=== PATIENT | male | born 1955 | race Caucasian/White ===

== ENCOUNTER → 2019-07-09 | Outpatient (CLI) | payer MEDICARE, OTHER ==
[~2019-07-09] MED LIST: ASPI325; ATOR10; CLOP75; CYCL10; FENO67; FISH1000; Hydrocodone-Ap1 EA20 PO; LISI20; METF500C; METO25ER; NIAC500ER PO; OXYC10ER; RANI150 PO; ROSI4; SIMV10 PO
== END | disposition home or self-care (01) ==
LOC: PLD 10:18 → LAB SHORT 10:18
DX: L28.1 Prurigo nodularis (principal)
CPT/HCPCS: 88305; 88312

== ENCOUNTER → 2021-07-13 | Outpatient (CLI) | payer MEDICARE, OTHER | END | disposition home or self-care (01) | LOC: LAB SHORT 13:38 | DX: A49.9 Bacterial infection, unspecified (principal) | CPT/HCPCS: 87070; 87205 ==

== ENCOUNTER 2023-05-08 12:41 | Day surgery (SDC) | payer MEDICARE, OTHER ==
[~2023-05-08] VITALS: Ht 182.9 cm; Wt 104.5 kg
[2023-05-08] MEDS ORDERED: CARVEDILOL3.125 MG PO (13:23)
[2023-05-08] MEDS ORDERED: DIAZEPAM10 MG PO (13:25)
[2023-05-08] MEDS ORDERED: FUROSEMIDE20 MG PO (13:25)
[2023-05-08] MEDS ORDERED: METF500 PO (13:25)
[2023-05-08] MEDS ORDERED: SPIRONOLACTONE50 MG PO (13:25)
--- NOTE | 2023-05-08 13:31 | NUR ---
05/08/23 1331 Beba Sierra TETRACAINE TO THE L EYE AT 1322, PLEDGET PLACED IN L EYE AT 1324
[2023-05-08 14:44] VITALS: BP 122/82
== END 2023-05-08 14:55 | disposition home or self-care (01) ==
LOC: ORSCSDS 12:41
PROVIDERS: Ophthalmology
PROC: 08RK3JZ Replacement of Left Lens with Synthetic Substitute, Percutaneous Approach (ICD-10-PCS; principal; 2023-05-08 14:00)
DX: E11.36 Type 2 diabetes mellitus with diabetic cataract (principal); H25.13 Age-related nuclear cataract, bilateral; H21.81 Floppy iris syndrome; F17.210 Nicotine dependence, cigarettes, uncomplicated; K21.9 Gastro-esophageal reflux disease without esophagitis; E78.00 Pure hypercholesterolemia, unspecified; I10 Essential (primary) hypertension; Z79.899 Other long term (current) drug therapy
CPT/HCPCS: 82947; J2250; J3010; J3301; J7040; V2632

== ENCOUNTER 2023-05-22 12:51 | Day surgery (SDC) | payer MEDICARE, OTHER ==
[~2023-05-22] VITALS: Ht 182.9 cm; Wt 106.0 kg
[~2023-05-22 12:51] MED LIST changes: +CARVEDILOL3.125 MG PO; +DIAZEPAM10 MG PO; +FUROSEMIDE20 MG PO; +METF500 PO; +SPIRONOLACTONE50 MG PO
[2023-05-22] MEDS ORDERED: OMEP20ER (13:17)
--- NOTE | 2023-05-22 13:24 | NUR ---
05/22/23 1324 Maria Eugenia Sweeney CALL LIGHT WITHIN REACH. TETRACAINE IN AT 1317 AND PLEDGETT IN AT 1318 IN RIGHT EYE
[2023-05-22 14:28] VITALS: BP 107/67
== END 2023-05-22 14:50 | disposition home or self-care (01) ==
LOC: ORSCSDS 12:51
PROVIDERS: Ophthalmology
PROC: 08RJ3JZ Replacement of Right Lens with Synthetic Substitute, Percutaneous Approach (ICD-10-PCS; principal; 2023-05-22 14:00)
DX: E11.36 Type 2 diabetes mellitus with diabetic cataract (principal); H25.11 Age-related nuclear cataract, right eye; Z96.1 Presence of intraocular lens; I25.10 Atherosclerotic heart disease of native coronary artery without angina pectoris; K21.9 Gastro-esophageal reflux disease without esophagitis; I10 Essential (primary) hypertension; F17.210 Nicotine dependence, cigarettes, uncomplicated; Z79.84 Long term (current) use of oral hypoglycemic drugs; Z79.82 Long term (current) use of aspirin; Z79.899 Other long term (current) drug therapy
CPT/HCPCS: 82947; J2250; J3010; J3301; J7040; V2632

== ENCOUNTER → 2024-07-31 | Outpatient (CLI) | payer OTHER ==
[~2024-07-31] MED LIST changes: +DIAZ10 PO; +FLAGYL500 MG PO; +LACT10SY PO; +NICO21TP TOP; +OMEP20ER; +PANT40 PO; +RIFA550T2 PO; +ZOCOR20 MG PO
== END ==
LOC: LAB SHORT 07:45 → LAB 07:45
DX: R21 Rash and other nonspecific skin eruption (principal)
CPT/HCPCS: 88312

== ENCOUNTER 2024-11-02 19:13 | Inpatient (IN) | payer OTHER ==
[~2024-11-02] VITALS: Ht 182.9 cm; Wt 95.9 kg
[2024-11-02 19:56] LABS: BASOPHILS ABSOLUTE AUTO 0.06 K/mm3 (0.00-0.23); BASOPHILS PERCENT AUTO 1 % (0-2); EOSINOPHILS ABSOLUTE AUTO 0.09 K/mm3 (0.00-0.68); EOSINOPHILS PERCENT AUTO 1 % (0-6); Hematocrit 36.8 % (37.0-53.0); Hemoglobin 12.8 g/dL (13.5-17.5); IMMATURE GRAN ABSOLUTE AUTO 0.04 K/mm3 (0.00-0.10); IMMATURE GRAN PERCENT AUTO 0 % (0-1); LYMPHOCYTES ABSOLUTE AUTO 0.99 K/mm3 (0.84-5.20); LYMPHOCYTES PERCENT AUTO 10 % (21-46); MONOCYTES ABSOLUTE AUTO 0.77 K/mm3 (0.16-1.47); MONOCYTES PERCENT AUTO 8 % (4-13); Mean Corpuscular HGB 32.9 pg (26.0-34.0); Mean Corpuscular HGB Conc 34.8 g/dL (31.5-36.5); Mean Corpuscular Volume 95 fL (80-100); Mean Platelet Volume 10.7 fL (9.1-12.4); NEUTROPHILS ABSOLUTE AUTO 8.36 K/mm3 (1.96-9.15); NEUTROPHILS PERCENT AUTO 81 % (41-73); Platelet Count 88 K/mm3 (150-400); RDW Coefficient Variation 15.9 % (11.7-14.2); RDW Standard Deviation 55.1 fL (35.1-46.3); Red Blood Cell Count 3.89 M/mm3 (4.30-5.90); White Blood Cell Count 10.31 K/mm3 (4.00-11.30)
[2024-11-02 20:09] LABS: Alanine Aminotransfer (ALT/SGP 55 U/L (12-78); Albumin, Blood 2.6 g/dL (3.4-5.0); Albumin/Globulin Ratio 0.5 (0.8-1.8); Alk Phos 154 U/L (50-136); Anion Gap 12 mmol/L (3-11); Aspartate Aminotrans (AST/SGOT 59 U/L (12-37); Bilirubin, Total 4.3 mg/dL (0.1-1.0); Blood Urea Nitrogen 11 mg/dL (8-24); Bun/Creatinine Ratio 12.7 (12.0-20.0); CO2, Blood 20 mmol/L (21-32); Calcium, Blood 9.2 mg/dL (8.5-10.1); Chloride, Blood 115 mmol/L (98-108); Creatinine, Blood 0.86 mg/dL (0.60-1.20); Ethanol (Alcohol), Blood, Med <3 mg/dL; Globulin, Blood 4.8 g/dL (2.2-4.0); Glomerular Filtration Rate 94 (60-); Glucose, Blood 208 mg/dL (70-99); Potassium, Blood 4.4 mmol/L (3.5-5.5); Sodium, Blood 143 mmol/L (136-145); Total Protein, Blood 7.4 g/dL (6.4-8.2)
[2024-11-02 21:50] LABS: International Normalized Ratio 1.39; Prothrombin Time Results 14.5 Sec (9.7-11.5)
[2024-11-02] MEDS ORDERED: Lactulose 200 GM/300 ML Enema 300ML BTL PR ONE (22:05)
[2024-11-02] MEDS ORDERED: Lactulose 20 GM/30 ML UDC PO ONE (22:05)
[2024-11-03 01:08] LABS: Source, Urine Clean Catch
[2024-11-03] MEDS ORDERED: Lactated Ringer's 1,000 ML IV SCH (01:25)
[2024-11-03] MEDS ORDERED: FLU VACC TS2024-25(6MOS UP)/PF 45 MCG/0.5 ML SYRINGE IM ONE (01:25)
[2024-11-03 01:26] LABS: Bilirubin, Urine Neg (Neg); Blood, Urine Neg (Neg); Glucose Qualitative, Urine Neg (Neg); Ketones, Urine Neg (Neg); Leukocyte Esterase, Urine Neg (Neg); Nitrite, Urine Neg (Neg); Protein, Urine Neg (Neg); Specific Gravity, Urine 1.005 (1.003-1.022); Urobilinogen, Urine 1+ (Normal)
[2024-11-03 01:36] LABS: U Amphetamine Screen Not Detected; U Barbituate Screen Not Detected; U Benzodiazapine Screen DETECTED; U Buprenorphine Screen Not Detected; U Cannabinoids Screen Not Detected; U Cocaine Screen Not Detected; U Methadone Screen Not Detected; U Methamphetamine Screen Not Detected; U Opiates Screen Not Detected; U Oxycodone Screen Not Detected; U Phencyclidine Screen Not Detected
[2024-11-03 01:40] LABS: Appearance, Urine Clear (Clear); Color, Urine Yellow (P-Yellow)
[2024-11-03] MEDS ORDERED: Insulin Human Lispro 100 Units/ML 3ML Syringe SC SCH ×2 (06:00→11:30)
[2024-11-03] MEDS ORDERED: Pantoprazole Sodium 40 MG Injection IV SCH (06:00)
[2024-11-03 07:33] LABS: Albumin, Blood 2.4 g/dL (3.4-5.0); Albumin/Globulin Ratio 0.6 (0.8-1.8); Bilirubin, Total 4.9 mg/dL (0.1-1.0); Bun/Creatinine Ratio 19.1 (12.0-20.0); Calcium, Blood 8.4 mg/dL (8.5-10.1); Creatinine, Blood 0.68 mg/dL (0.60-1.20); Globulin, Blood 4.3 g/dL (2.2-4.0); Total Protein, Blood 6.7 g/dL (6.4-8.2)
[2024-11-03 07:37] LABS: BASOPHILS ABSOLUTE AUTO 0.06 K/mm3 (0.00-0.23); BASOPHILS PERCENT AUTO 1 % (0-2); EOSINOPHILS ABSOLUTE AUTO 0.08 K/mm3 (0.00-0.68); EOSINOPHILS PERCENT AUTO 1 % (0-6); Hematocrit 32.4 % (37.0-53.0); Hemoglobin 11.6 g/dL (13.5-17.5); IMMATURE GRAN ABSOLUTE AUTO 0.04 K/mm3 (0.00-0.10); IMMATURE GRAN PERCENT AUTO 0 % (0-1); LYMPHOCYTES ABSOLUTE AUTO 1.52 K/mm3 (0.84-5.20); LYMPHOCYTES PERCENT AUTO 17 % (21-46); MONOCYTES ABSOLUTE AUTO 0.72 K/mm3 (0.16-1.47); MONOCYTES PERCENT AUTO 8 % (4-13); Mean Corpuscular HGB 33.7 pg (26.0-34.0); Mean Corpuscular HGB Conc 35.8 g/dL (31.5-36.5); Mean Corpuscular Volume 94 fL (80-100); Mean Platelet Volume 12.2 fL (9.1-12.4); NEUTROPHILS ABSOLUTE AUTO 6.55 K/mm3 (1.96-9.15); NEUTROPHILS PERCENT AUTO 73 % (41-73); Platelet Count 68 K/mm3 (150-400); RDW Coefficient Variation 15.9 % (11.7-14.2); RDW Standard Deviation 54.7 fL (35.1-46.3); Red Blood Cell Count 3.44 M/mm3 (4.30-5.90); White Blood Cell Count 8.97 K/mm3 (4.00-11.30)
[2024-11-03] MEDS ORDERED: Lactulose 200 GM/300 ML Enema 300ML BTL PR PRN (08:00)
[2024-11-03 08:53] VITALS: BP 136/78
[2024-11-03] MEDS ORDERED: Enoxaparin 40 MG/0.4 ML SYR SC SCH (09:00)
[2024-11-03] MEDS ORDERED: RifAXIMin 550 MG Tablet PO SCH (11:00)
[2024-11-03] MEDS ORDERED: Lactulose 20 GM/30 ML UDC PO SCH (13:00)
[2024-11-03 16:03] VITALS: BP 109/59
--- NOTE | 2024-11-03 16:12 | NUR ---
REPORT TAKEN FROM YOLI RN IN ED. PT ARRIVED AND WAS VERY COMBATIVE AND WOULDNT LET STAFF HELP WITH CARE. PT TOOK OUT HIS PIV AND TELE STICKERS AND WAS TUGGING TRYING TO PULL OUT INDWELLING ALCANTAR CATH. PT KEPT STATING HE WANTED TO TALK WITH HIS AND GO HME. THIS NURSE CALLED HIS AND GOT NO ANWER. MD NOTIFIED AND SHOWED UP AND TALKED WITH ABOUT A PLAN AND IS IN PLACE. SINCE PT WAS APOLOGETIC AND LET THIS NURSE PUT ON TELE AND PLACE A NEW PIV. PT HAS BEEN CALM AND COOPERTIVE SINCE.
--- NOTE | 2024-11-03 18:13 | NUR ---
PT WAS ABLE TO TOLERATE CLD, THIS NURSE FOLLOWED ORDERS AND ADVANCED DIET. PT ALSO RESPONDED VERY WELL FOR BLADDER TRAINING SO I D/C ORTIZ CAT @6739
[2024-11-03 19:24] VITALS: BP 126/74
--- NOTE | 2024-11-03 21:30 | NUR ---
assumed care of pt at 1845 and received report. pt verbalized wanting to shower, get dressedd, and go home. pt prepared for shower but educated on risks of discharge prior to medical stability. pt verbalized understanding and at this time agrees to stay at hospital for the night.
[2024-11-04] MEDS ORDERED: Lidocaine 4% 1 Patch TOP PRN (04:00)
[2024-11-04] MEDS ORDERED: Lidocaine 4% 1 Patch TOP ONE (04:00)
--- NOTE | 2024-11-04 04:04 | NUR ---
DISCUSSED W/ PT, PT , AND DR COLEMAN REGARDING PT PLAN OF CARE. WILL ENCOURAGE PT TO REMAIN IN CARE
[2024-11-04 04:35] LABS: BASOPHILS PERCENT AUTO 1 % (0-2); EOSINOPHILS ABSOLUTE AUTO 0.26 K/mm3 (0.00-0.68); EOSINOPHILS PERCENT AUTO 4 % (0-6); Hematocrit 33.5 % (37.0-53.0); Hemoglobin 11.7 g/dL (13.5-17.5); IMMATURE GRAN ABSOLUTE AUTO 0.02 K/mm3 (0.00-0.10); IMMATURE GRAN PERCENT AUTO 0 % (0-1); LYMPHOCYTES ABSOLUTE AUTO 2.59 K/mm3 (0.84-5.20); LYMPHOCYTES PERCENT AUTO 35 % (21-46); MONOCYTES ABSOLUTE AUTO 0.46 K/mm3 (0.16-1.47); MONOCYTES PERCENT AUTO 6 % (4-13); Mean Corpuscular HGB 33.4 pg (26.0-34.0); Mean Corpuscular HGB Conc 34.9 g/dL (31.5-36.5); Mean Corpuscular Volume 96 fL (80-100); Mean Platelet Volume 10.2 fL (9.1-12.4); NEUTROPHILS ABSOLUTE AUTO 4.04 K/mm3 (1.96-9.15); NEUTROPHILS PERCENT AUTO 54 % (41-73); Platelet Count 81 K/mm3 (150-400); RDW Coefficient Variation 15.8 % (11.7-14.2); RDW Standard Deviation 55.6 fL (35.1-46.3); White Blood Cell Count 7.47 K/mm3 (4.00-11.30)
[2024-11-04 04:51] LABS: Albumin, Blood 2.6 g/dL (3.4-5.0); Albumin/Globulin Ratio 0.6 (0.8-1.8); Bilirubin, Total 6.1 mg/dL (0.1-1.0); Bun/Creatinine Ratio 16.4 (12.0-20.0); Calcium, Blood 8.7 mg/dL (8.5-10.1); Creatinine, Blood 0.79 mg/dL (0.60-1.20); Globulin, Blood 4.5 g/dL (2.2-4.0); Magnesium, Blood 1.4 mg/dL (1.6-2.4); Phosphorus, Blood 1.9 mg/dL (2.5-4.9); Potassium, Blood 3.4 mmol/L (3.5-5.5); Total Protein, Blood 7.1 g/dL (6.4-8.2)
--- NOTE | 2024-11-04 06:27 | NUR ---
SHIFT SUMMARY PT A&OX4 AND ANSWERS QUESTIONS APPROPRIATELY. PT IS RESISTENT TO CARE AND VERBALIZES WANTING TO GO HOME. PT EDUCATED ON REASONS FOR BEING IN HOSPITAL. PT DOES NOT VERBALIZE UNDERSTANDING. SPOKE W/ PHYSICIAN AND PT , PT WILL BE PRESENT IN THE AM TO TALK W/ . PT PULLED OFF ALL LINES INCLUDIING PERIPHERA IVS AND TELEMETRY. PT WAITING OUTSIDE ROOM TO EAVE AND IS SITTING IN A CHAIR. NO ACUTE EVENTS AT THIS TIME. PT LEFT IN A POSITION OF SAFETY WITH FALL PRECAUTIONS IN PLACE.
[2024-11-04 09:03] VITALS: BP 117/75
[2024-11-04] MEDS ORDERED: Kristalose20 GM PO (09:07)
[2024-11-04] MEDS ORDERED: CALCIUM CITRATE PO (09:10)
[2024-11-04] MEDS ORDERED: VITAMIN B121000 MCG PO (09:11)
[2024-11-04] MEDS ORDERED: ONE A DAY VITAMIN PO (09:12)
[2024-11-04] MEDS ORDERED: POTASSIUM GLUCONATE PO (09:12)
--- NOTE | 2024-11-04 09:57 | NUR ---
per night nurse pt wanted to leave ama all night and ripped out piv and tele box. PT THIS MORNING ON MY SHIFT WAS NON COMPLIANT AND DID NOT WANT ANY CARE PROVIDED AND DENIED ALL MEDICATIONS. MD NOTIFIED AND CAME UP TO DO A D/C ON THE PT. PT LEFT WITH HOME.
== END 2024-11-04 09:47 | disposition home health service (06) | DRG 442 ==
LOC: ER 19:13 → SURS 23:11 → MEDS 23:11 → ERHOLD 23:11 → ER 23:11 → MEDS 11-03 08:28
PROVIDERS: Hospitalist; Student in an Organized Health Care Education/Training Program; ADMIT Student in an Organized Health Care Education/Training Program
PROC: 0DH67UZ Insertion of Feeding Device into Stomach, Via Natural or Artificial Opening (ICD-10-PCS; principal; 2024-11-02)
PROC: 0T9B70Z Drainage of Bladder with Drainage Device, Via Natural or Artificial Opening (ICD-10-PCS; 2024-11-03)
DX: K76.82 Hepatic encephalopathy (principal); D68.4 Acquired coagulation factor deficiency; I85.10 Secondary esophageal varices without bleeding; K76.6 Portal hypertension; K56.7 Ileus, unspecified; K56.609 Unspecified intestinal obstruction, unspecified as to partial versus complete obstruction; E11.9 Type 2 diabetes mellitus without complications; E78.5 Hyperlipidemia, unspecified; I10 Essential (primary) hypertension; F17.210 Nicotine dependence, cigarettes, uncomplicated; K74.60 Unspecified cirrhosis of liver; F03.90 Unspecified dementia, unspecified severity, without behavioral disturbance, psychotic disturbance, mood disturbance, and anxiety; R33.9 Retention of urine, unspecified; I25.10 Atherosclerotic heart disease of native coronary artery without angina pectoris; K75.81 Nonalcoholic steatohepatitis (NASH); K80.20 Calculus of gallbladder without cholecystitis without obstruction; Z91.148 Patient's other noncompliance with medication regimen for other reason; Z88.5 Allergy status to narcotic agent; Z88.8 Allergy status to other drugs, medicaments and biological substances; Z91.041 Radiographic dye allergy status; Z79.84 Long term (current) use of oral hypoglycemic drugs; Z79.899 Other long term (current) drug therapy; Z98.49 Cataract extraction status, unspecified eye; Z95.5 Presence of coronary angioplasty implant and graft; Z90.89 Acquired absence of other organs; Z88.1 Allergy status to other antibiotic agents; Z28.21 Immunization not carried out because of patient refusal
CPT/HCPCS: 36415; 51702; 70450; 71045; 74176; 76705; 80053; 80320; 81003; 82140; 82947; 83735; 84100; 85025; 85610; 85730; 94762; 97161; 97530; 99285-25; A9270; J2470; J7120

== ENCOUNTER 2025-04-17 10:07 | Inpatient (IN) | payer OTHER ==
[~2025-04-17] VITALS: Ht 154.9 cm; Wt 97.9 kg
[~2025-04-17 10:07] MED LIST changes: +CALCIUM CITRATE PO; +Kristalose20 GM PO; +ONE A DAY VITAMIN PO; +POTASSIUM GLUCONATE PO; +VITAMIN B121000 MCG PO
[2025-04-17] MEDS ORDERED: RIFA550T2 PO (10:31)
[2025-04-17] MEDS ORDERED: Milk Thistle175 M1 PO (10:31)
[2025-04-17 10:38] LABS: BASOPHILS ABSOLUTE AUTO 0.05 K/mm3 (0.00-0.23); BASOPHILS PERCENT AUTO 1 % (0-2); EOSINOPHILS ABSOLUTE AUTO 0.10 K/mm3 (0.00-0.68); EOSINOPHILS PERCENT AUTO 2 % (0-6); Hematocrit 33.3 % (37.0-53.0); Hemoglobin 12.0 g/dL (13.5-17.5); IMMATURE GRAN ABSOLUTE AUTO 0.01 K/mm3 (0.00-0.10); IMMATURE GRAN PERCENT AUTO 0 % (0-1); LYMPHOCYTES ABSOLUTE AUTO 1.59 K/mm3 (0.84-5.20); LYMPHOCYTES PERCENT AUTO 32 % (21-46); MONOCYTES ABSOLUTE AUTO 0.23 K/mm3 (0.16-1.47); MONOCYTES PERCENT AUTO 5 % (4-13); Mean Corpuscular HGB Conc 36.0 g/dL (31.5-36.5); Mean Corpuscular Volume 92 fL (80-100); NEUTROPHILS ABSOLUTE AUTO 2.98 K/mm3 (1.96-9.15); NEUTROPHILS PERCENT AUTO 60 % (41-73); NRBC ABSOLUTE 0.00 K/mm3 (0.00-0.02); NRBC Auto 0.0 /100 WBC (0.0-0.2); Platelet Count 74 K/mm3 (150-400); RDW Coefficient Variation 14.6 % (11.7-14.2); RDW Standard Deviation 49.2 fL (35.1-46.3)
[2025-04-17 10:55] LABS: Alanine Aminotransfer (ALT/SGP 59.0 U/L (12-78); Albumin, Blood 2.6 g/dL (3.4-5.0); Albumin/Globulin Ratio 0.6 (0.8-1.8); Anion Gap 10.0 mmol/L (3-11); Aspartate Aminotrans (AST/SGOT 70.0 U/L (12-37); Bilirubin, Total 2.7 mg/dL (0.1-1.0); Blood Urea Nitrogen 24.0 mg/dL (8-24); CO2, Blood 24.0 mmol/L (21-32); Calcium, Blood 8.6 mg/dL (8.5-10.1); Chloride, Blood 99.0 mmol/L (98-108); Creatinine, Blood 1.12 mg/dL (0.60-1.20); Globulin, Blood 4.4 g/dL (2.2-4.0); Glucose, Blood 103.0 mg/dL (70-99); Potassium, Blood 5.3 mmol/L (3.5-5.5); Sodium, Blood 128.0 mmol/L (136-145); Total Protein, Blood 7.0 g/dL (6.4-8.2)
[2025-04-17 11:23] LABS: Prothrombin Time Results 14.9 Sec (9.7-11.5)
[2025-04-17] MEDS ORDERED: METR500 PO (11:57)
[2025-04-17 15:54] LABS: Anion Gap 11.0 mmol/L (3-11); Blood Urea Nitrogen 24.0 mg/dL (8-24); CO2, Blood 22.0 mmol/L (21-32); Calcium, Blood 8.6 mg/dL (8.5-10.1); Chloride, Blood 99.0 mmol/L (98-108); Creatinine, Blood 1.0 mg/dL (0.60-1.20); Glucose, Blood 121.0 mg/dL (70-99); Potassium, Blood 4.9 mmol/L (3.5-5.5); Sodium, Blood 127.0 mmol/L (136-145)
[2025-04-17] MEDS ORDERED: Insulin Human Lispro 100 Units/ML 3ML Syringe SC SCH (16:30)
[2025-04-17] MEDS ORDERED: Lactulose 200 GM/300 ML Enema 300ML BTL PR SCH (18:00)
--- NOTE | 2025-04-17 18:35 | NUR ---
ADMIT NOTE: PT ARRIVED ON UNIT AT APPOX 1600. HE RESPONDS TO VERBAL STIMULI BUT UNABLE TO ANSWER QUESTIONS. HE IS ON RA WITH SPO2>90. HE HAS A ALCANTAR DRAINING TO GRAVITY AND A RECTAL TUBE PLACED FOR LACTULOSE ENEMAS. PT IS UNABLE TO TAKE PO MEDS DUE TO DROWSINESS. HE IS IN NSR WITH RATES IN THE 50S. CARE CONTINUES
[2025-04-17 19:25] VITALS: BP 122/72
[2025-04-17 23:39] VITALS: BP 108/68
[2025-04-18 04:26] VITALS: BP 112/64
[2025-04-18 05:29] LABS: BASOPHILS ABSOLUTE AUTO 0.09 K/mm3 (0.00-0.23); BASOPHILS PERCENT AUTO 2 % (0-2); EOSINOPHILS ABSOLUTE AUTO 0.13 K/mm3 (0.00-0.68); EOSINOPHILS PERCENT AUTO 3 % (0-6); Hematocrit 35.7 % (37.0-53.0); Hemoglobin 12.8 g/dL (13.5-17.5); IMMATURE GRAN ABSOLUTE AUTO 0.00 K/mm3 (0.00-0.10); IMMATURE GRAN PERCENT AUTO 0 % (0-1); LYMPHOCYTES ABSOLUTE AUTO 1.42 K/mm3 (0.84-5.20); LYMPHOCYTES PERCENT AUTO 29 % (21-46); MONOCYTES ABSOLUTE AUTO 0.33 K/mm3 (0.16-1.47); MONOCYTES PERCENT AUTO 7 % (4-13); Mean Corpuscular HGB Conc 35.9 g/dL (31.5-36.5); Mean Corpuscular Volume 93 fL (80-100); NEUTROPHILS ABSOLUTE AUTO 2.87 K/mm3 (1.96-9.15); NEUTROPHILS PERCENT AUTO 59 % (41-73); NRBC ABSOLUTE 0.00 K/mm3 (0.00-0.02); NRBC Auto 0.0 /100 WBC (0.0-0.2); Platelet Count 63 K/mm3 (150-400); RDW Coefficient Variation 14.8 % (11.7-14.2); RDW Standard Deviation 50.7 fL (35.1-46.3)
[2025-04-18 05:55] LABS: Alanine Aminotransfer (ALT/SGP 66.0 U/L (12-78); Albumin, Blood 2.7 g/dL (3.4-5.0); Albumin/Globulin Ratio 0.6 (0.8-1.8); Anion Gap 10.0 mmol/L (3-11); Aspartate Aminotrans (AST/SGOT 81.0 U/L (12-37); Bilirubin, Total 3.6 mg/dL (0.1-1.0); Blood Urea Nitrogen 21.0 mg/dL (8-24); CO2, Blood 23.0 mmol/L (21-32); Calcium, Blood 8.7 mg/dL (8.5-10.1); Chloride, Blood 106.0 mmol/L (98-108); Creatinine, Blood 0.97 mg/dL (0.60-1.20); Globulin, Blood 4.6 g/dL (2.2-4.0); Glucose, Blood 75.0 mg/dL (70-99); Potassium, Blood 3.8 mmol/L (3.5-5.5); Sodium, Blood 135.0 mmol/L (136-145); Total Protein, Blood 7.3 g/dL (6.4-8.2)
--- NOTE | 2025-04-18 06:29 | NUR ---
SHIFT SUMMARY PT ALERT, OREINTED TO SELF AND PLACE. HE IS CONFUSED BUT MENTATION IMPROVING FROM T/O SHIFT. HR IN THE 40'S-50'S, SINUS AAMIR. HE DENIES ANY CP/PRESSURE, NUMB/TINGLING, SBP STABLE. 02 >92% ON RA. PT HAS ALCANTAR IN PLACE, DRAINING TO GRAVITY. STAT LOCK CHANGED THIS AM. PT HAS RECTAL TUBE IN PLACE, RECTAL TUBE CHANGED THIS AM. PT HAVING LIQUID BROWN STOOLS, RECIEVING LACTULOSE ENEMA Q6. PT ASKING "WHEN CAN I GO HOME." EDUCATION PROVIDED TO PT ON PLAN OF CARE. PT SITTING UP IN BED AT THIS TIME. WILL MONITOR PT AND REPORT TO ONCOMING RN.
[2025-04-18 07:27] VITALS: BP 139/72
[2025-04-18] MEDS ORDERED: Enoxaparin 40 MG/0.4 ML SYR SC SCH (09:00)
[2025-04-18 12:05] LABS: Stool Occult Blood Guaiac 1 Neg (Neg)
== END 2025-04-18 15:00 | disposition home or self-care (01) | DRG 442 ==
LOC: ER 10:07 → ERHOLD 14:27 → PCU 16:53
PROVIDERS: Emergency Medicine; ADMIT Student in an Organized Health Care Education/Training Program
DX: K76.82 Hepatic encephalopathy (principal); E72.20 Disorder of urea cycle metabolism, unspecified; K76.6 Portal hypertension; K74.69 Other cirrhosis of liver; K75.81 Nonalcoholic steatohepatitis (NASH); D69.6 Thrombocytopenia, unspecified; I25.10 Atherosclerotic heart disease of native coronary artery without angina pectoris; I10 Essential (primary) hypertension; Z66 Do not resuscitate; E11.42 Type 2 diabetes mellitus with diabetic polyneuropathy; D64.9 Anemia, unspecified; F17.200 Nicotine dependence, unspecified, uncomplicated; T47.3X6A Underdosing of saline and osmotic laxatives, initial encounter; R33.9 Retention of urine, unspecified; Z91.138 Patient's unintentional underdosing of medication regimen for other reason; Z95.5 Presence of coronary angioplasty implant and graft; Z86.718 Personal history of other venous thrombosis and embolism; Z91.148 Patient's other noncompliance with medication regimen for other reason; Z79.84 Long term (current) use of oral hypoglycemic drugs; Z88.8 Allergy status to other drugs, medicaments and biological substances; Z88.5 Allergy status to narcotic agent; Z91.041 Radiographic dye allergy status; I25.2 Old myocardial infarction
CPT/HCPCS: 36415; 51702; 51798; 80048; 80053; 82140; 82272; 82947; 83930; 83935; 84300; 85025; 85610; 93005; 93010; 99285-25; A9270; J1650

== ENCOUNTER 2025-04-24 11:22 | Observation (INO) | payer OTHER ==
[~2025-04-24] VITALS: Ht 182.9 cm; Wt 97.3 kg
[~2025-04-24 11:22] MED LIST changes: +METR500 PO; +Milk Thistle175 M1 PO
[2025-04-24] MEDS ORDERED: Naloxone HCl 1MG / ML 2ML SYR IV ONE (11:35)
[2025-04-24 11:40] LABS: BASOPHILS ABSOLUTE AUTO 0.04 K/mm3 (0.00-0.23); BASOPHILS PERCENT AUTO 1 % (0-2); EOSINOPHILS ABSOLUTE AUTO 0.08 K/mm3 (0.00-0.68); EOSINOPHILS PERCENT AUTO 2 % (0-6); Hematocrit 30.5 % (37.0-53.0); Hemoglobin 11.0 g/dL (13.5-17.5); IMMATURE GRAN ABSOLUTE AUTO 0.01 K/mm3 (0.00-0.10); IMMATURE GRAN PERCENT AUTO 0 % (0-1); LYMPHOCYTES ABSOLUTE AUTO 1.60 K/mm3 (0.84-5.20); LYMPHOCYTES PERCENT AUTO 31 % (21-46); MONOCYTES ABSOLUTE AUTO 0.26 K/mm3 (0.16-1.47); MONOCYTES PERCENT AUTO 5 % (4-13); Mean Corpuscular HGB Conc 36.1 g/dL (31.5-36.5); Mean Corpuscular Volume 91 fL (80-100); NEUTROPHILS ABSOLUTE AUTO 3.25 K/mm3 (1.96-9.15); NEUTROPHILS PERCENT AUTO 62 % (41-73); NRBC ABSOLUTE 0.00 K/mm3 (0.00-0.02); NRBC Auto 0.0 /100 WBC (0.0-0.2); Platelet Count 59 K/mm3 (150-400); RDW Coefficient Variation 15.1 % (11.7-14.2); RDW Standard Deviation 50.3 fL (35.1-46.3)
[2025-04-24 12:16] LABS: Alanine Aminotransfer (ALT/SGP 73.0 U/L (12-78); Albumin, Blood 2.5 g/dL (3.4-5.0); Albumin/Globulin Ratio 0.6 (0.8-1.8); Anion Gap 13.0 mmol/L (3-11); Aspartate Aminotrans (AST/SGOT 87.0 U/L (12-37); Bilirubin, Total 1.9 mg/dL (0.1-1.0); Blood Urea Nitrogen 19.0 mg/dL (8-24); CO2, Blood 20.0 mmol/L (21-32); Calcium, Blood 8.3 mg/dL (8.5-10.1); Chloride, Blood 99.0 mmol/L (98-108); Creatinine, Blood 1.31 mg/dL (0.60-1.20); Globulin, Blood 4.1 g/dL (2.2-4.0); Glucose, Blood 121.0 mg/dL (70-99); Potassium, Blood 5.7 mmol/L (3.5-5.5); Sodium, Blood 126.0 mmol/L (136-145); Total Protein, Blood 6.6 g/dL (6.4-8.2)
[2025-04-24] MEDS ORDERED: Lactulose 200 GM/300 ML Enema 300ML BTL PR ONE (12:20)
[2025-04-24] MEDS ORDERED: NS 1,000 ML IV SCH (12:25)
[2025-04-24 12:26] LABS: U Amphetamine Screen Not Detected; U Barbituate Screen Not Detected; U Benzodiazapine Screen DETECTED; U Buprenorphine Screen Not Detected; U Cannabinoids Screen Not Detected; U Cocaine Screen Not Detected; U Methadone Screen Not Detected; U Methamphetamine Screen Not Detected; U Opiates Screen Not Detected; U Oxycodone Screen Not Detected; U Phencyclidine Screen Not Detected
[2025-04-24 15:14] VITALS: BP 113/76
[2025-04-24 15:28] LABS: Source, Urine Foley catheter
[2025-04-24 15:33] LABS: Bilirubin, Urine Neg (Neg); Color, Urine Yellow (P-Yellow); Glucose Qualitative, Urine Neg (Neg); Ketones, Urine Neg (Neg); Leukocyte Esterase, Urine 1+ (Neg); Protein, Urine Neg (Neg); Specific Gravity, Urine 1.010 (1.003-1.022); Urobilinogen, Urine NORM (Normal)
--- NOTE | 2025-04-24 16:13 | NUR ---
ARRIVAL NOTE: PT ARRIVES TO PCU OBTUNDED RESPONDING TO VERBAL STIMULI BUT NOT ANSWERING QUESTIONS. HE IS ON TELE IN NSR AND RA WITH SPO2 >95%. CONTINUOUS SPO2 MONITORING. ALCANTAR WAS PLACED PER ORDERS WITH >1300 DRAINED (SEE I&OS). RECTAL TUBE PLACED FOR LACTULOSE ENEMAS. CARE CONTINUES
[2025-04-24] MEDS ORDERED: CefTRIAXone Sodium 1,000 MG in NS 100 ML IV SCH (17:00)
[2025-04-24] MEDS ORDERED: NS 250 ML IV PRN (17:10)
[2025-04-24] MEDS ORDERED: Lactulose 200 GM/300 ML Enema 300ML BTL PR SCH (18:00)
[2025-04-24 19:40] VITALS: BP 109/64
--- NOTE | 2025-04-24 21:31 | NUR ---
NURSE NOTE PT HAS CALLED THREE TIMES [facility] AND IS WANTING HOME MEDICATIONS ORDERED. THIS INFORMATION WAS PASSED ALONG TO RESIDENT MD, WHO SAID HE WOULD LOOK INTO THIS, PT WOULD ALSO LIKE SOMEONE TO CALL PT HEAD CHOPPER THE PHONE NUMBER IS [phone]. THIS INFORMATION WILL BE PASSED ON TO THE RESIDENT AND TO THE DAY SHIFT TEAM.
[2025-04-25 00:14] VITALS: BP 114/66
[2025-04-25 03:54] LABS: BASOPHILS ABSOLUTE AUTO 0.07 K/mm3 (0.00-0.23); BASOPHILS PERCENT AUTO 1 % (0-2); EOSINOPHILS ABSOLUTE AUTO 0.15 K/mm3 (0.00-0.68); EOSINOPHILS PERCENT AUTO 2 % (0-6); Hematocrit 32.0 % (37.0-53.0); Hemoglobin 11.5 g/dL (13.5-17.5); IMMATURE GRAN ABSOLUTE AUTO 0.01 K/mm3 (0.00-0.10); IMMATURE GRAN PERCENT AUTO 0 % (0-1); LYMPHOCYTES ABSOLUTE AUTO 1.48 K/mm3 (0.84-5.20); LYMPHOCYTES PERCENT AUTO 20 % (21-46); MONOCYTES ABSOLUTE AUTO 0.37 K/mm3 (0.16-1.47); MONOCYTES PERCENT AUTO 5 % (4-13); Mean Corpuscular HGB Conc 35.9 g/dL (31.5-36.5); Mean Corpuscular Volume 93 fL (80-100); NEUTROPHILS ABSOLUTE AUTO 5.46 K/mm3 (1.96-9.15); NEUTROPHILS PERCENT AUTO 73 % (41-73); NRBC ABSOLUTE 0.00 K/mm3 (0.00-0.02); NRBC Auto 0.0 /100 WBC (0.0-0.2); Platelet Count 56 K/mm3 (150-400); RDW Coefficient Variation 15.3 % (11.7-14.2); RDW Standard Deviation 51.6 fL (35.1-46.3)
[2025-04-25 04:10] LABS: Alanine Aminotransfer (ALT/SGP 74.0 U/L (12-78); Albumin, Blood 2.4 g/dL (3.4-5.0); Albumin/Globulin Ratio 0.6 (0.8-1.8); Anion Gap 12.0 mmol/L (3-11); Aspartate Aminotrans (AST/SGOT 82.0 U/L (12-37); Bilirubin, Total 2.8 mg/dL (0.1-1.0); Blood Urea Nitrogen 14.0 mg/dL (8-24); CO2, Blood 20.0 mmol/L (21-32); Calcium, Blood 8.2 mg/dL (8.5-10.1); Chloride, Blood 108.0 mmol/L (98-108); Creatinine, Blood 1.01 mg/dL (0.60-1.20); Globulin, Blood 4.0 g/dL (2.2-4.0); Glucose, Blood 98.0 mg/dL (70-99); Potassium, Blood 3.9 mmol/L (3.5-5.5); Total Protein, Blood 6.4 g/dL (6.4-8.2)
[2025-04-25 04:20] LABS: Sodium, Blood 136.0 mmol/L (136-145)
[2025-04-25 04:27] VITALS: BP 112/71
--- NOTE | 2025-04-25 05:55 | NUR ---
NOC SHIFT SUMMARY PT MENTATION HAS MUCH IMPROVED SINCE START OF SHIFT, HE IS ORIENTATED TO SELF, PLACE, AND PERSON. HE WAS AVLE TO TELL ME , WHERE HE LIVES WHAT KIND OF ANIMALS HE HAS AT HOME. HE WAS TALKING ABOUT HIS . AROUND 0000 PATIENT WAS ABLE TO FOLLOW SOME COMMANDS AND HELP WITH REPOSTIONING, HE LIFTED BOTH LEGS AND ARMS WHEN INSTRUCTED. SINCE HE HAS AWOKEN MORE HE HAS BEEN DEMANDING TO GO HOME AND IS UPSET HE IS AT THE HOSPITAL AGAIN (HE WAS RECENTLY DISCHARGED). RECTAL TUBE REMAINS IN PLACE WITH 2000MLS OUT. ALCANTAR IN PLACE DRAINING TO GRAVITY. TELE IN PLACE SHOWING SINUS AT A RATE OF 75. DENIES CHEST PAIN OR PRESSURE. ON RA SATTING >90% T/O THE NIGHT. BED ALARM ON, CALL LIGHT IN REACH. WILL REPORT TO ON COMING RN.
[2025-04-25 07:41] VITALS: BP 128/63
[2025-04-25] MEDS ORDERED: Pantoprazole Sodium 40 MG Injection IV SCH (09:00)
[2025-04-25 11:21] VITALS: BP 105/59
--- NOTE | 2025-04-25 14:15 | NUR ---
DISCHARGE NOTE: PT AND EDCUATED ON NEED TO TAKE MEDICATIONS PRESCRIBED AND TO FOLLOW UP WITH PCP REGARDING CONTINUED CARE. PIV, ALCANTAR, AND RECTAL TUBE REMOVED BEFORE DISCHARGE. NO QUESTIONS OR CONCERNS AT TIME OF DISCHARGE.
== END 2025-04-25 14:14 | disposition home or self-care (01) ==
LOC: ER 11:22 → ERHOLD 12:47 → PCU 14:31
PROVIDERS: Emergency Medicine; ADMIT Family Medicine
DX: K76.82 Hepatic encephalopathy (principal); R41.82 Altered mental status, unspecified; K74.60 Unspecified cirrhosis of liver; K75.81 Nonalcoholic steatohepatitis (NASH); R33.9 Retention of urine, unspecified; D69.6 Thrombocytopenia, unspecified; D64.9 Anemia, unspecified; N17.9 Acute kidney failure, unspecified; I10 Essential (primary) hypertension; E11.9 Type 2 diabetes mellitus without complications; E87.1 Hypo-osmolality and hyponatremia; E87.6 Hypokalemia; E78.5 Hyperlipidemia, unspecified; Z95.5 Presence of coronary angioplasty implant and graft; Z87.891 Personal history of nicotine dependence; Z79.84 Long term (current) use of oral hypoglycemic drugs; Z79.899 Other long term (current) drug therapy; Z91.041 Radiographic dye allergy status; Z88.5 Allergy status to narcotic agent; Z88.8 Allergy status to other drugs, medicaments and biological substances; Z98.890 Other specified postprocedural states
CPT/HCPCS: 36415; 51701; 70450; 76705; 80053; 81001; 82140; 82947; 84132; 84484; 85025; 87086; 93005; 93010; 93971; 96365; 96374; 96375; 99285-25; A9270; G0378; J0696; J2310; J2312; J2470; J7030; J7050

== ENCOUNTER 2025-06-13 23:07 | Emergency (ER) | payer OTHER ==
[~2025-06-13] VITALS: Ht 182.9 cm; Wt 89.4 kg
[2025-06-14 01:06] LABS: BASOPHILS ABSOLUTE AUTO 0.07 K/mm3 (0.00-0.23); BASOPHILS PERCENT AUTO 1 % (0-2); EOSINOPHILS ABSOLUTE AUTO 0.14 K/mm3 (0.00-0.68); EOSINOPHILS PERCENT AUTO 2 % (0-6); Hematocrit 33.4 % (37.0-53.0); Hemoglobin 11.9 g/dL (13.5-17.5); IMMATURE GRAN ABSOLUTE AUTO 0.03 K/mm3 (0.00-0.10); IMMATURE GRAN PERCENT AUTO 0 % (0-1); LYMPHOCYTES ABSOLUTE AUTO 1.93 K/mm3 (0.84-5.20); LYMPHOCYTES PERCENT AUTO 28 % (21-46); MONOCYTES ABSOLUTE AUTO 0.52 K/mm3 (0.16-1.47); MONOCYTES PERCENT AUTO 8 % (4-13); Mean Corpuscular HGB Conc 35.6 g/dL (31.5-36.5); Mean Corpuscular Volume 94 fL (80-100); NEUTROPHILS ABSOLUTE AUTO 4.16 K/mm3 (1.96-9.15); NEUTROPHILS PERCENT AUTO 61 % (41-73); NRBC ABSOLUTE 0.00 K/mm3 (0.00-0.02); NRBC Auto 0.0 /100 WBC (0.0-0.2); Platelet Count 97 K/mm3 (150-400); RDW Coefficient Variation 16.3 % (11.7-14.2); RDW Standard Deviation 57.2 fL (35.1-46.3)
[2025-06-14 01:14] LABS: Prothrombin Time Results 16.6 Sec (9.7-11.5)
[2025-06-14 01:18] LABS: Alanine Aminotransfer (ALT/SGP 54.0 U/L (12-78); Albumin, Blood 2.6 g/dL (3.4-5.0); Albumin/Globulin Ratio 0.6 (0.8-1.8); Anion Gap 10.0 mmol/L (3-11); Aspartate Aminotrans (AST/SGOT 70.0 U/L (12-37); Bilirubin, Total 3.5 mg/dL (0.1-1.0); Blood Urea Nitrogen 21.0 mg/dL (8-24); CO2, Blood 22.0 mmol/L (21-32); Calcium, Blood 8.7 mg/dL (8.5-10.1); Chloride, Blood 105.0 mmol/L (98-108); Creatinine, Blood 1.3 mg/dL (0.60-1.20); Globulin, Blood 4.7 g/dL (2.2-4.0); Glucose, Blood 116.0 mg/dL (70-99); Potassium, Blood 4.9 mmol/L (3.5-5.5); Sodium, Blood 132.0 mmol/L (136-145); Total Protein, Blood 7.3 g/dL (6.4-8.2)
[2025-06-14 03:42] VITALS: BP 117/67
== END 2025-06-14 04:44 | disposition home or self-care (01) ==
LOC: ER 23:07
PROVIDERS: Student in an Organized Health Care Education/Training Program
DX: S01.111A Laceration without foreign body of right eyelid and periocular area, initial encounter (principal); R53.1 Weakness; E11.9 Type 2 diabetes mellitus without complications; E78.5 Hyperlipidemia, unspecified; I25.2 Old myocardial infarction; I10 Essential (primary) hypertension; F17.210 Nicotine dependence, cigarettes, uncomplicated; W01.0XXA Fall on same level from slipping, tripping and stumbling without subsequent striking against object, initial encounter; Z79.84 Long term (current) use of oral hypoglycemic drugs; Z79.899 Other long term (current) drug therapy; Z88.5 Allergy status to narcotic agent; Z88.8 Allergy status to other drugs, medicaments and biological substances
CPT/HCPCS: 12013; 70450; 80053; 84484; 85025; 85610; 85730; 93005; 93010; 99284-25

== ENCOUNTER 2025-06-15 16:59 | Emergency (ER) | payer OTHER ==
[~2025-06-15] VITALS: Ht 182.9 cm; Wt 88.9 kg
[2025-06-15] MEDS ORDERED: NS 1,000 ML IV SCH ×2 (17:15→21:15)
[2025-06-15 21:39] LABS: BASOPHILS ABSOLUTE AUTO 0.05 K/mm3 (0.00-0.23); BASOPHILS PERCENT AUTO 1 % (0-2); EOSINOPHILS ABSOLUTE AUTO 0.13 K/mm3 (0.00-0.68); EOSINOPHILS PERCENT AUTO 3 % (0-6); Hematocrit 29.4 % (37.0-53.0); Hemoglobin 10.3 g/dL (13.5-17.5); IMMATURE GRAN ABSOLUTE AUTO 0.02 K/mm3 (0.00-0.10); IMMATURE GRAN PERCENT AUTO 0 % (0-1); LYMPHOCYTES ABSOLUTE AUTO 1.62 K/mm3 (0.84-5.20); LYMPHOCYTES PERCENT AUTO 32 % (21-46); MONOCYTES ABSOLUTE AUTO 0.34 K/mm3 (0.16-1.47); MONOCYTES PERCENT AUTO 7 % (4-13); Mean Corpuscular HGB Conc 35.0 g/dL (31.5-36.5); Mean Corpuscular Volume 97 fL (80-100); NEUTROPHILS ABSOLUTE AUTO 2.97 K/mm3 (1.96-9.15); NEUTROPHILS PERCENT AUTO 58 % (41-73); NRBC ABSOLUTE 0.00 K/mm3 (0.00-0.02); NRBC Auto 0.0 /100 WBC (0.0-0.2); Platelet Count 68 K/mm3 (150-400); RDW Coefficient Variation 16.5 % (11.7-14.2); RDW Standard Deviation 58.7 fL (35.1-46.3)
[2025-06-15 21:58] LABS: Alanine Aminotransfer (ALT/SGP 50.0 U/L (12-78); Albumin, Blood 2.2 g/dL (3.4-5.0); Albumin/Globulin Ratio 0.5 (0.8-1.8); Anion Gap 12.0 mmol/L (3-11); Aspartate Aminotrans (AST/SGOT 60.0 U/L (12-37); Bilirubin, Total 3.7 mg/dL (0.1-1.0); Blood Urea Nitrogen 27.0 mg/dL (8-24); CO2, Blood 18.0 mmol/L (21-32); Calcium, Blood 8.1 mg/dL (8.5-10.1); Chloride, Blood 102.0 mmol/L (98-108); Creatinine, Blood 1.09 mg/dL (0.60-1.20); Globulin, Blood 4.1 g/dL (2.2-4.0); Glucose, Blood 224.0 mg/dL (70-99); Potassium, Blood 5.0 mmol/L (3.5-5.5); Sodium, Blood 127.0 mmol/L (136-145); Total Protein, Blood 6.3 g/dL (6.4-8.2)
[2025-06-15 22:17] VITALS: BP 107/62
== END 2025-06-15 23:00 | disposition home or self-care (01) ==
LOC: ER 16:59
PROVIDERS: Student in an Organized Health Care Education/Training Program
DX: S09.90XA Unspecified injury of head, initial encounter (principal); K76.0 Fatty (change of) liver, not elsewhere classified; E78.5 Hyperlipidemia, unspecified; E11.9 Type 2 diabetes mellitus without complications; F17.210 Nicotine dependence, cigarettes, uncomplicated; W01.0XXA Fall on same level from slipping, tripping and stumbling without subsequent striking against object, initial encounter; Z79.899 Other long term (current) drug therapy; Z88.5 Allergy status to narcotic agent; Z88.8 Allergy status to other drugs, medicaments and biological substances
CPT/HCPCS: 70450; 80053; 82140; 85025; 93005; 93010; J7030

== ENCOUNTER 2025-06-23 05:15 | Emergency (ER) | payer OTHER ==
[~2025-06-23] VITALS: Ht 182.9 cm; Wt 90.7 kg
[2025-06-23 05:41] LABS: BASOPHILS ABSOLUTE AUTO 0.09 K/mm3 (0.00-0.23); BASOPHILS PERCENT AUTO 1 % (0-2); EOSINOPHILS ABSOLUTE AUTO 0.22 K/mm3 (0.00-0.68); EOSINOPHILS PERCENT AUTO 3 % (0-6); Hematocrit 34.7 % (37.0-53.0); Hemoglobin 12.3 g/dL (13.5-17.5); IMMATURE GRAN ABSOLUTE AUTO 0.03 K/mm3 (0.00-0.10); IMMATURE GRAN PERCENT AUTO 0 % (0-1); LYMPHOCYTES ABSOLUTE AUTO 2.14 K/mm3 (0.84-5.20); LYMPHOCYTES PERCENT AUTO 27 % (21-46); MONOCYTES ABSOLUTE AUTO 0.68 K/mm3 (0.16-1.47); MONOCYTES PERCENT AUTO 9 % (4-13); Mean Corpuscular HGB Conc 35.4 g/dL (31.5-36.5); Mean Corpuscular Volume 95 fL (80-100); NEUTROPHILS ABSOLUTE AUTO 4.72 K/mm3 (1.96-9.15); NEUTROPHILS PERCENT AUTO 60 % (41-73); NRBC ABSOLUTE 0.00 K/mm3 (0.00-0.02); NRBC Auto 0.0 /100 WBC (0.0-0.2); Platelet Count 119 K/mm3 (150-400); RDW Coefficient Variation 16.4 % (11.7-14.2); RDW Standard Deviation 57.5 fL (35.1-46.3)
[2025-06-23 06:06] LABS: Alanine Aminotransfer (ALT/SGP 64 U/L (12-78); Albumin, Blood 2.5 g/dL (3.4-5.0); Albumin/Globulin Ratio 0.5 (0.8-1.8); Anion Gap 16 mmol/L (3-11); Aspartate Aminotrans (AST/SGOT 72 U/L (12-37); Bilirubin, Total 3.3 mg/dL (0.1-1.0); Blood Urea Nitrogen 31 mg/dL (8-24); CO2, Blood 16 mmol/L (21-32); Calcium, Blood 8.9 mg/dL (8.5-10.1); Chloride, Blood 100 mmol/L (98-108); Creatinine, Blood 1.17 mg/dL (0.60-1.20); Ethanol (Alcohol), Blood, Med <3 mg/dL; Globulin, Blood 5.2 g/dL (2.2-4.0); Glucose, Blood 105 mg/dL (70-99); Potassium, Blood 5.3 mmol/L (3.5-5.5); Sodium, Blood 127 mmol/L (136-145); Total Protein, Blood 7.7 g/dL (6.4-8.2)
[2025-06-23] MEDS ORDERED: METR500 PO (06:39)
[2025-06-23 07:48] LABS: pH Blood Venous 7.36 (7.34-7.37)
[2025-06-23] MEDS ORDERED: NS 500 ML IV SCH (13:40)
[2025-06-23 14:22] LABS: Source, Urine Clean Catch
[2025-06-23 14:55] LABS: Bilirubin, Urine Neg (Neg); Color, Urine Amber (P-Yellow); Glucose Qualitative, Urine Neg (Neg); Ketones, Urine 1+ (Neg); Leukocyte Esterase, Urine 1+ (Neg); Protein, Urine 1+ (Neg); Specific Gravity, Urine 1.015 (1.003-1.022); Urobilinogen, Urine NORM (Normal)
[2025-06-23 15:09] VITALS: BP 124/70
[2025-06-23 15:22] LABS: U Amphetamine Screen Not Detected; U Barbituate Screen Not Detected; U Benzodiazapine Screen DETECTED; U Buprenorphine Screen Not Detected; U Cannabinoids Screen Not Detected; U Cocaine Screen Not Detected; U Methadone Screen Not Detected; U Methamphetamine Screen Not Detected; U Opiates Screen Not Detected; U Oxycodone Screen Not Detected; U Phencyclidine Screen Not Detected
[2025-06-23 16:00] LABS: Red Blood Cells, Urine 0-2 /hpf (0-2)
== END 2025-06-23 15:16 | disposition home or self-care (01) ==
LOC: ER 05:15
PROVIDERS: Student in an Organized Health Care Education/Training Program
DX: E86.0 Dehydration (principal); E87.1 Hypo-osmolality and hyponatremia; R53.1 Weakness; K74.60 Unspecified cirrhosis of liver; Z91.81 History of falling; R33.9 Retention of urine, unspecified; Z88.5 Allergy status to narcotic agent; Z88.6 Allergy status to analgesic agent; Z88.8 Allergy status to other drugs, medicaments and biological substances; Z79.84 Long term (current) use of oral hypoglycemic drugs; Z79.899 Other long term (current) drug therapy; I10 Essential (primary) hypertension; E78.5 Hyperlipidemia, unspecified; E11.9 Type 2 diabetes mellitus without complications; I25.10 Atherosclerotic heart disease of native coronary artery without angina pectoris; I25.2 Old myocardial infarction; F17.210 Nicotine dependence, cigarettes, uncomplicated
CPT/HCPCS: 51798; 71111; 80053; 80320; 81001; 82010; 82140; 82803; 85025; 87086; 93005; 93010; 99285-25; A9270; J7030; J7120

== ENCOUNTER 2025-07-01 09:46 | Inpatient (IN) | payer OTHER ==
[~2025-07-01] VITALS: Ht 180.3 cm; Wt 89.5 kg
[2025-07-01 10:24] LABS: pH Blood Venous 7.32 (7.34-7.37)
[2025-07-01 10:29] LABS: Source, Urine Straight Cath
[2025-07-01 10:32] LABS: BASOPHILS ABSOLUTE AUTO 0.03 K/mm3 (0.00-0.23); BASOPHILS PERCENT AUTO 0 % (0-2); EOSINOPHILS ABSOLUTE AUTO 0.13 K/mm3 (0.00-0.68); EOSINOPHILS PERCENT AUTO 1 % (0-6); Hematocrit 34.8 % (37.0-53.0); Hemoglobin 12.7 g/dL (13.5-17.5); IMMATURE GRAN ABSOLUTE AUTO 0.06 K/mm3 (0.00-0.10); IMMATURE GRAN PERCENT AUTO 1 % (0-1); LYMPHOCYTES ABSOLUTE AUTO 1.11 K/mm3 (0.84-5.20); LYMPHOCYTES PERCENT AUTO 10 % (21-46); MONOCYTES ABSOLUTE AUTO 0.87 K/mm3 (0.16-1.47); MONOCYTES PERCENT AUTO 8 % (4-13); Mean Corpuscular HGB Conc 36.5 g/dL (31.5-36.5); Mean Corpuscular Volume 96 fL (80-100); NEUTROPHILS ABSOLUTE AUTO 8.91 K/mm3 (1.96-9.15); NEUTROPHILS PERCENT AUTO 80 % (41-73); NRBC ABSOLUTE 0.00 K/mm3 (0.00-0.02); NRBC Auto 0.0 /100 WBC (0.0-0.2); Platelet Count 109 K/mm3 (150-400); RDW Coefficient Variation 17.5 % (11.7-14.2); RDW Standard Deviation 61.1 fL (35.1-46.3)
[2025-07-01 10:40] LABS: Bilirubin, Urine Neg (Neg); Color, Urine Amber (P-Yellow); Glucose Qualitative, Urine Neg (Neg); Ketones, Urine 1+ (Neg); Leukocyte Esterase, Urine 1+ (Neg); Protein, Urine 1+ (Neg); Specific Gravity, Urine 1.015 (1.003-1.022); Urobilinogen, Urine NORM (Normal)
[2025-07-01 10:53] LABS: Magnesium, Blood 1.9 mg/dL (1.6-2.4)
[2025-07-01 11:00] LABS: Red Blood Cells, Urine Not Seen /hpf (0-2); White Blood Cells, Urine 0-2 /hpf (0-5)
[2025-07-01 11:09] LABS: Alanine Aminotransfer (ALT/SGP 88.0 U/L (12-78); Albumin, Blood 2.5 g/dL (3.4-5.0); Albumin/Globulin Ratio 0.5 (0.8-1.8); Aspartate Aminotrans (AST/SGOT 98.0 U/L (12-37); Bilirubin, Total 5.9 mg/dL (0.1-1.0); Blood Urea Nitrogen 50.0 mg/dL (8-24); CO2, Blood 14.0 mmol/L (21-32); Calcium, Blood 9.0 mg/dL (8.5-10.1); Chloride, Blood 89.0 mmol/L (98-108); Creatinine, Blood 1.11 mg/dL (0.60-1.20); Globulin, Blood 5.1 g/dL (2.2-4.0); Glucose, Blood 101.0 mg/dL (70-99); Total Protein, Blood 7.6 g/dL (6.4-8.2)
[2025-07-01 11:10] LABS: Anion Gap 22.0 mmol/L (3-11); Potassium, Blood 6.0 mmol/L (3.5-5.5); Sodium, Blood 119.0 mmol/L (136-145)
[2025-07-01] MEDS ORDERED: Insulin Regular 100 Unit/ML 1ML Dose IV ONE (11:15)
[2025-07-01] MEDS ORDERED: Sodium Bicarb 8.4% 1 MEQ/ML 50 ML Vial IV ONE (11:15)
[2025-07-01] MEDS ORDERED: Albuterol 2.5 MG/3 ML VIAL INH SCH (11:15)
[2025-07-01 11:27] LABS: Bilirubin, Direct 3.3 mg/dL (0.0-0.3)
[2025-07-01] MEDS ORDERED: NS 1,000 ML IV SCH ×2 (11:40→15:40)
[2025-07-01 12:27] LABS: Calcium, Ionized (POC) 1.08 mmol/L (1.10-1.46); Chloride (POC) 93 mmol/L (98-108); Creatinine (POC) 1.2 mg/dL (0.8-1.3); Glucose (ISTAT POC) 190 mg/dL (70-99); Hematocrit (POC) 37.0 % (41.0-53.0); Hemoglobin (POC) 12.6 g/dL (13.5-17.5); Potassium (POC) 5.2 mmol/L (3.5-5.5); Sodium (POC) 123 mmol/L (135-148); Total CO2 (POC) 12 mmol/L (21-32)
[2025-07-01] MEDS ORDERED: FLU VACC TS2025(65UP)/MF59C/PF 45 MCG/0.5 ML SYRINGE IM SCH (13:05)
[2025-07-01 14:07] LABS: Anion Gap 23.0 mmol/L (3-11); Blood Urea Nitrogen 50.0 mg/dL (8-24); CO2, Blood 11.0 mmol/L (21-32); Calcium, Blood 9.1 mg/dL (8.5-10.1); Chloride, Blood 92.0 mmol/L (98-108); Creatinine, Blood 1.06 mg/dL (0.60-1.20); Glucose, Blood 179.0 mg/dL (70-99); Potassium, Blood 4.6 mmol/L (3.5-5.5); Sodium, Blood 121.0 mmol/L (136-145)
[2025-07-01] MEDS ORDERED: Sodium Bicarb 8.4% Inj 75 MEQ in Sodium Chloride 0.45% 1,000 ML IV ONE (16:05)
[2025-07-01 16:12] VITALS: BP 120/63
[2025-07-01] MEDS ORDERED: Insulin Regular 100 UNIT/ML 10ML Vial SC SCH (16:30)
[2025-07-01] MEDS ORDERED: CefTRIAXone Sodium 1,000 MG in NS 100 ML IV SCH (16:30)
[2025-07-01 17:33] LABS: Prothrombin Time Results 19.6 Sec (9.7-11.5)
[2025-07-01 18:00] VITALS: BP 121/68
--- NOTE | 2025-07-01 18:22 | NUR ---
SHIFT SUMMARY PT BROGHT UP TO PCU 15 AT 1605, TRANSFERRED TO HIS BED WITH THE TRANSFER SHEET, SKIN CHECK COMPLETED AND BOOSTED IN BED, HE IS VERY DIFFICULT TO UNDERSTAND WHEN HE TALKS MAKING SOME ADMISSION ELEMENTS DIFFICULT TO COMPLETE. WHO WAS AT BEDSIDE IN THE ER SPOKE TO THIS RN BRIEFLY BEFORE LEAVING PROVIDING SOME LIVER HX AND RECEMT MEDICAL HX, STATES SHE IS AVAILABLE IF NEEDED BUT WOULD BE BACK TOMORROW. PT HAS BEEN RESTING SINCE SHORTLY AFTER ARRIVAL.
--- NOTE | 2025-07-01 19:51 | NUR ---
ASSUMPTION OF CARE ASSUMED PT'S CARE AT 1900,BEDSIDE REPORT COMPLETED.PT WIDE AWAKE SITTING UP IN BED.PT A&O TO SELF ONLY,SPEECH GARBLED,VERY DIFFICULTY TO UNDERSTAND.PLAN OF CARE REVIEWED,PT DENIES PAIN.PT GIVEN A SIP OF WATER PER PT'S REQUEST.PT SWALLOWED WITHOUT DIFFICULTY.DENIES NEEDS.CALL LIGHT AND PT'S ITEMS WITHIN REACH.MONITORING ONGOING PER CAREPLAN.
[2025-07-01 20:21] VITALS: BP 109/78
[2025-07-01] MEDS ORDERED: Lactobacil 2-S.Thermo-Bifido 1 1 Cap PO SCH (21:00)
[2025-07-01 21:25] LABS: Anion Gap 23.0 mmol/L (3-11); Blood Urea Nitrogen 51.0 mg/dL (8-24); CO2, Blood 13.0 mmol/L (21-32); Calcium, Blood 9.2 mg/dL (8.5-10.1); Chloride, Blood 91.0 mmol/L (98-108); Creatinine, Blood 1.08 mg/dL (0.60-1.20); Glucose, Blood 175.0 mg/dL (70-99); Potassium, Blood 5.2 mmol/L (3.5-5.5); Sodium, Blood 122.0 mmol/L (136-145)
[2025-07-01 23:30] VITALS: BP 129/82
--- NOTE | 2025-07-02 00:53 | NUR ---
MEDIA ASSOCIATE NOTIFIED THIS RN TO CHECK ON PATIENT, NOTED TORADES ON TELE; PT ALERT, GRUNTING, RAPID CALLED, QUICKLY BECAME UNRESPONSIVE, AGINAL BREATHING NOTED. HÉCTOR CALLED AT 0013. DR ESCOTO AND DR WYNN AT BEDSIDE, DR ESCOTO NOTIFIED SPOUSE. SPOUSE ON THE WAY TO HOSPITAL. LA ANDRESSA BARFIELD CALLING; NOTIFIED DONOR LINE; AWAITING HOME ONCE SPOUSE AT BEDSIDE.
[2025-07-02] MEDS ORDERED: Enoxaparin 40 MG/0.4 ML SYR SC SCH (09:00)
== END 2025-07-02 03:58 | DRG 641 ==
LOC: ER 09:46 → ERHOLD 13:01 → PCU 16:05
PROVIDERS: Student in an Organized Health Care Education/Training Program; ADMIT Family Medicine
DX: E87.1 Hypo-osmolality and hyponatremia (principal); E72.20 Disorder of urea cycle metabolism, unspecified; I47.21 Torsades de pointes; E87.5 Hyperkalemia; E86.0 Dehydration; E87.20 Acidosis, unspecified; I10 Essential (primary) hypertension; Z66 Do not resuscitate; Z74.01 Bed confinement status; E11.42 Type 2 diabetes mellitus with diabetic polyneuropathy; I44.4 Left anterior fascicular block; R62.7 Adult failure to thrive; I25.10 Atherosclerotic heart disease of native coronary artery without angina pectoris; D64.9 Anemia, unspecified; D69.6 Thrombocytopenia, unspecified; R74.01 Elevation of levels of liver transaminase levels; I25.2 Old myocardial infarction; Z95.5 Presence of coronary angioplasty implant and graft; Z90.89 Acquired absence of other organs; Z98.890 Other specified postprocedural states; Z88.8 Allergy status to other drugs, medicaments and biological substances; K74.60 Unspecified cirrhosis of liver; Z87.19 Personal history of other diseases of the digestive system; E78.5 Hyperlipidemia, unspecified; Z88.5 Allergy status to narcotic agent; Z79.84 Long term (current) use of oral hypoglycemic drugs; Z91.148 Patient's other noncompliance with medication regimen for other reason; Z68.26 Body mass index [BMI] 26.0-26.9, adult
CPT/HCPCS: 36415; 51701; 74177; 80047; 80048; 80053; 81001; 82010; 82140; 82248; 82330; 82803; 82947; 83605; 83690; 83735; 85014; 85025; 85610; 87040; 87086; 93005; 93010; 96374-59; 99285-25; A9270; J0696; J1815; J7030; Q9967